=== PATIENT | male | born 1930 | race Caucasian/White ===

== ENCOUNTER → 2017-02-21 | Outpatient (CLI) | payer MEDICARE, OTHER ==
--- NOTE | 2017-02-21 15:13 | DI ---
Indication: ITS.REASON: R31.29 MICRO HEMATURIA PROCEDURE: CT RENAL W/O CONTRAST: Encounter: Initial Comparison: None Technique: Axial CT images were performed through the abdomen and pelvis without intravenous contrast. Coronal and sagittal two-dimensional reformats. Automated Exposure Control and Iterative Reconstruction dose reducing techniques were utilized. Findings: Mild atelectasis or scarring in the lung bases. Coronary artery calcifications. The liver is unremarkable. Gallbladder is filled with gallstones. The spleen, pancreas and adrenal glands are within normal limits. Bilateral renal cysts. There is a higher than fluid attenuation lesion arising from the central aspect of the left kidney best seen on axial image #32 measuring 1.6 cm in diameter. This has an attenuation value of 45 Hounsfield units. No abdominal or pelvic lymphadenopathy. Scattered atherosclerotic plaque in the abdominal aorta and its major branches. Bladder appears normal. No free fluid. Bilateral inguinal hernias. The left inguinal hernia contains fat while the right inguinal hernia contains a nonobstructed loop of small bowel. The appendix is normal. 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 Impression: 1. Indeterminate 1.6 cm lesion in the central aspect of the left kidney. Differential considerations include proteinaceous cyst and neoplasm. Recommend renal mass protocol CT or contrast enhanced abdominal MRI for further evaluation given the history of hematuria. 2. Small bowel containing right inguinal hernia. .
== END ==
LOC: IMA 14:25
PROVIDERS: ATTEND Specialist
DX: N28.9 Disorder of kidney and ureter, unspecified (principal); K40.90 Unilateral inguinal hernia, without obstruction or gangrene, not specified as recurrent; R31.29 Other microscopic hematuria

== ENCOUNTER → 2017-03-14 | Outpatient (CLI) | payer MEDICARE, OTHER ==
[~2017-03-14] MED LIST: IOHEXOL 300 MG/ML 100ml INJECTION ONE; NORMAL SALINE 100 ML ONE; SALINE FLUSH 10ml SYRINGE ONE
--- NOTE | 2017-03-14 09:36 | DI ---
Indication: ITS.REASON: R31.29 HEMATURIA PROCEDURE: CT RENAL W/WO CONTRAST: Encounter: Initial Comparison: Renal CT dated February 21, 2017 Technique: Axial CT images were performed through the abdomen and pelvis before and after the administration of intravenous contrast. Delayed postcontrast images were also performed. Coronal and sagittal 2-dimensional reformats. Automated Exposure Control and Iterative Reconstruction dose reducing techniques were utilized. Contrast: Omnipaque 300 100 mL Findings: Mild atelectasis or scarring in the lung bases. Noncontrast images show no evidence of renal or ureteral stone disease. Postcontrast images show normal enhancement of the liver. Multiple gallstones filling the gallbladder. The spleen, pancreas and adrenal glands are within normal limits. Bilateral renal cysts. The lesion of concern in the medial central aspect of the left kidney shows postcontrast enhancement changing from a value of 53 Hounsfield units on the precontrast series to 105 Hounsfield units on the postcontrast images. This mass measures 2 cm in maximal diameter on coronal image #42. No abdominal or pelvic lymphadenopathy. Bladder is normal. No free fluid. Scattered left colonic diverticulosis without acute diverticulitis. Small bowel containing right inguinal hernia without evidence of acute obstruction. This appears similar to the prior. Bone windows are unchanged. Slightly delayed postcontrast images show normal excretion of contrast by both renal collecting systems. Partially opacified urinary bladder appears normal. Impression: Postcontrast enhancement within the 2 cm left renal mass. This could represent a renal cell carcinoma or oncocytoma. .
== END ==
LOC: IMA 08:40
PROVIDERS: ATTEND Specialist
DX: N28.89 Other specified disorders of kidney and ureter (principal); R31.29 Other microscopic hematuria
CPT/HCPCS: 74178; J7050; Q9967